=== PATIENT | female | born 2005 | race African-American/Black ===

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

== ENCOUNTER 2023-01-10 21:37 | Emergency (ER) | payer OTHER ==
[2023-01-10] MEDS ORDERED: Lidocaine 1% (PF) 30 ML VIAL ONE (22:27)
== END 2023-01-10 23:15 | disposition home or self-care (01) ==
LOC: NAV ERS 21:37
DX: L02.211 Cutaneous abscess of abdominal wall (principal)
CPT/HCPCS: 10060; J2001

== ENCOUNTER 2023-04-25 14:35 | Emergency (ER) | payer SELFPAY ==
[2023-04-25] MEDS ORDERED: Ondansetron ODT 4 MG TAB ONE (15:54)
[2023-04-25 16:11] LABS: #Basophils 0.1 thou/uL (0.0-0.2); #Eosinphils 0.4 thou/uL (0.0-0.7); #Lymphocytes 1.2 thou/uL (1.20-3.40); #Monocytes 0.4 thou/uL (0.11-0.59); #Neutrophils 2.9 thou/uL (1.40-6.50); %Eosinophils 8.4 % (0.0-10.0); %Lymphocytes 23.1 % (28.0-48.0); %Monocytes 8.3 % (0.0-4.0); %Neutrophils 59.2 % (31.0-61.0); Hematocrit 33.5 % (36.0-47.0); Hemoglobin 10.4 g/dL (12.0-16.0); Mean Corpuscular HGB CONC 31.1 g/dL (32.0-36.0); Mean Corpuscular Hemoglobin 24.7 pg (25.0-35.0); Mean Corpuscular Volume 79.3 fl (78.0-98.0); Mean Platelet Volume 6.9 fL (7.4-10.4); Platelet Count 309 10x3/uL (130-400); RBC Distribution Width 16.7 % (11.5-14.5); Red Blood Cell (RBC) Count 4.22 mill/uL (4.00-5.20)
[2023-04-25 16:13] LABS: ALT (SGPT) 12 U/L (8-55); AST (SGOT) 13 U/L (5-30); Alkaline Phosphatase 68 U/L (40-100); Anion Gap 12 mmol/L (10-20); BUN (Urea Nitrogen) 7 mg/dL (8.4-21.0); Bilirubin, Total 0.3 mg/dL (0.2-1.2); Calc. Creatinine Clearance 0 mL/min (70-130); Calcium 8.7 mg/dL (7.8-10.44); Carbon Dioxide 24 mmol/L (22-29); Chloride 106 mmol/L (98-107); Estimated GFR 128; Globulin 3.2 g/dL (2.4-3.5); Glucose 85 mg/dL (70-105); Potassium 4.2 mmol/L (3.5-5.1); Protein, Total 7.2 g/dL (6.0-8.3); Sodium 138 mmol/L (136-145)
[2023-04-25 16:31] LABS: Bilirubin Negative (Negative); Blood, Urine Large (Negative); Clarity Cloudy (Clear); Glucose, Urine (Dipstick) Negative (Negative); Ketone, Urine > or equal to 80 mg/dL (Negative); Leukocyte Negative (Negative); Nitrite Negative (Negative); Protein, Urine (Dipstick) Negative (Neg-Trace); Urobilinogen 0.2 mg/dL (Less than 2)
[2023-04-25 16:42] LABS: Bacteria/HPF Rare-Few HPF (None Seen); CAUTI Indications for Culture Dysuria,urgency,freq; Mucous/LPF 1+ LPF (<2+); RBC/HPF Greater than 50 HPF (0-3); Squamous Epithelial 0-3 HPF (0-3); WBC/HPF None Seen HPF (0-3)
[2023-04-25 16:43] LABS: Urine Culture Reflex No No
== END 2023-04-25 16:34 | disposition home or self-care (01) ==
LOC: NAV ERS 14:35
DX: N92.0 Excessive and frequent menstruation with regular cycle (principal); D64.9 Anemia, unspecified
CPT/HCPCS: 36415; 80053; 81001; 85025; 99284; Q0162

== ENCOUNTER 2023-05-06 12:36 | Emergency (ER) | payer SELFPAY ==
[2023-05-06] MEDS ORDERED: Sulfameth/Trimethoprim DS 800-160mg TAB ONE (14:29)
[2023-05-06] MEDS ORDERED: Boostrix 0.5 ML (Tdap) VIAL (>/=7 yrs of age) ONE (14:32)
== END 2023-05-06 14:40 | disposition home or self-care (01) ==
LOC: NAV ERS 12:36
DX: S90.415A Abrasion, left lesser toe(s), initial encounter (principal); L03.032 Cellulitis of left toe; V86.56XA Driver of dirt bike or motor/cross bike injured in nontraffic accident, initial encounter
CPT/HCPCS: 90471; 90715

== ENCOUNTER 2023-06-05 06:48 | Emergency (ER) | payer SELFPAY ==
[2023-06-05] MEDS ORDERED: Naproxen 500 MG TAB ONE (07:23)
== END 2023-06-05 07:58 | disposition home or self-care (01) ==
LOC: NAV ERS 06:48
DX: G56.02 Carpal tunnel syndrome, left upper limb (principal)
CPT/HCPCS: 99283

== ENCOUNTER 2025-02-23 20:41 | Emergency (ER) | payer BC ==
[2025-02-23 21:33] LABS: Pregnancy Test - Urine (BHCG) Negative (Negative); Pregu Control Background? CLEAR/WHITE (CLR/WHITE); Pregu Control Bar Appear? YES (CONTROL BAR)
[2025-02-23 21:34] LABS: Glucose, Urine (Dipstick) Negative (Negative); Leukocyte Small (Negative); Protein, Urine (Dipstick) Negative (Neg-Trace); Specific Gravity, Urine 1.020 (1.005-1.030)
[2025-02-23 21:36] LABS: CAUTI Indications for Culture Dysuria,urgency,freq; WBC/HPF 21-50 HPF (0-3)
[2025-02-23 21:37] LABS: Bacteria/HPF Rare-Few HPF (None Seen); Trichomonas/HPF 1+ HPF (None Seen)
[2025-02-23 21:38] LABS: Urine Culture Reflex Yes Yes
[2025-02-23] MEDS ORDERED: metroNIDAZOLE 500 MG TAB ONE (21:51)
== END 2025-02-23 21:55 | disposition home or self-care (01) ==
LOC: NAV ERS 20:41
DX: A59.00 Urogenital trichomoniasis, unspecified (principal); R10.30 Lower abdominal pain, unspecified; R11.0 Nausea
CPT/HCPCS: 81001; 81025; 87086; 99284

== ENCOUNTER → 2025-03-11 | Emergency (ER) | payer BC | LOC: NAV ERS 01:24 | DX: J30.9 Allergic rhinitis, unspecified (principal); J20.8 Acute bronchitis due to other specified organisms; R06.2 Wheezing; I10 Essential (primary) hypertension; E11.9 Type 2 diabetes mellitus without complications ==